=== PATIENT | male | born 1985 | race Caucasian/White ===

== ENCOUNTER 2024-07-28 03:16 | Inpatient (IN) | payer BC ==
[~2024-07-28] VITALS: Ht 182.9 cm; Wt 83.0 kg
[2024-07-28] MEDS: IBUPROFEN 600 MG TAB PO ONE ×2 (03:35→03:36)
--- NOTE | 2024-07-28 03:48 | ED.PDOC ---
HPI Comments 39 year old male presents to the ED with a chief complaint of intermittent chest pain onset 3 weeks. Patient states he has been experiencing intermittent chest pain for the past 3 weeks, as well as fever for the past 9 days. He had a telehealth appointment 2 days ago, prescribed Doxycycline was told to go to ED if there was no improvement in 48 hours. Patient states he is still experiencing fever over 102 every night, chills, sweats, shortness of breath. Temperature at 18:00 was 104.0 F, took Tylenol around 02:00 and upon ED arrival temperature was 101.8 F. Patient noticed dark urine for the past few days. Patient has a PMHx of HTN, HLD, preDM, PTSD. Denies nausea, vomiting, diarrhea, abdominal pain, headache, cough, congestion, dysuria, hematuria, sick contact. No other symptoms or modifying factors present at this time. Chief Complaint: Chest Pain Time Seen by MD: 03:34 Reviewed Notes: Medications, Allergies Allergies: Coded Allergies: Penicillins (Verified Allergy, Unknown, 07/28/24) Sulfa Antibiotics (Verified Allergy, Unknown, 07/28/24) Information Source: Patient Mode of Arrival: Ambulatory Severity: Moderate Timing: Days Duration: Since onset Prehospital treatment: Treatment (doxycycline), Other (tylenol) Location: Chest (L) Radiation: No Radiation Quality: Stabbing Onset: At Rest Cardiac Risk Factors: Hyperlipidemia PE Risk Factors: None History of: None Modifying Factors: Nothing Associated Signs and Symptoms: SOB, Other (fever) Past Medical History PAST MEDICAL HISTORY: High Lipids, HTN Past Medical History (Other): PTSD Surgical History: Denies all surgeries Family History Family History: Reviewed,noncontributory to illness, No family hx of Cancer, No family hx of DM, No family hx of Heart marlin, No family hx of HTN, No family hx ofKidney marlin, No family hx of Liver marlin, No family hx of Lung marlin, No family hx of Stroke Social History Smoker: Non-Smoker Alcohol: Denies ETOH Use Drugs: Denies Drug Use Lives In: Home Constitutional: reports: chills, fever, sweats; denies: diaphoresis, fatigue, malaise, weakness, others EENTM: denies: blurred vision, double vision, ear bleeding, ear discharge, ear drainage, ear pain, ear ringing, eye pain, eye redness, hearing loss, mouth pain, mouth swelling, nasal discharge, nose bleeding, nose congestion, nose pain, photophobia, tearing, throat pain, throat swelling, voice changes, others Respiratory: reports: shortness of breath; denies: cough, hemoptysis, orthopnea, SOB at rest, SOB with excertion, stridor, wheezing, others Cardiovascular: reports: chest pain; denies: dizzy spells, diaphoresis, Dyspnea on exertion, edema, irregular heart beat, left arm pain, lightheadedness, palpitations, PND, syncope, others Gastrointestinal: denies: abdomen distended, abdominal pain, blood streaked bowels, constipated, diarrhea, dysphagia, difficulty swallowing, hematemesis, melena, nausea, poor appetite, poor fluid intake, rectal bleeding, rectal pain, vomiting, others Genitourinary: reports: others (dark urine ); denies: burning, dysuria, flank pain, frequency, hematuria, incontinence, penile discharge, penile sore, pain, testicle pain, testicle swelling, urgency Neurological: denies: dizziness, fainting, headache, left sided numbness, left sided weakness, numbness, paresthesia, pre-existing deficit, right sided numbness, right sided weakness, seizure, speech problems, tingling, tremors, weakness, others Musculoskeletal: denies: back pain, gout, joint pain, joint swelling, muscle pain, muscle stiffness, neck pain, others Integumetry: denies: bruises, change in color, change in hair/nails, dryness, laceration, lesions, lumps, rash, wounds, others Allergic/Immunocompromised: denies: Difficulty Healing, Frequent Infections, Hives, Itching, others Hematologic/Lymphatic: denies: anemia, blood clots, easy bleeding, easy bruising, swollen glands, others Endocrine: denies: excessive hunger, excessive sweating, excessive thirst, excessive urination, flushing, intolerance to cold, intolerance to heat, unexplained weight gain, unexplained weight loss, others Psychiatric: denies: anxiety, bipolar disorder, depression, hopeless, panic disorder, schizophrenia, sleepless, suicidal, others All Other Systems: Reviewed and Negative Physical Exam General Appearance: No Apparent Distress HEENT: Normal ENT Inspection Neck: Full Range of Motion, Normal Inspection Respiratory: Chest Non-Tender, Lungs Clear, No Accessory Muscle Use, No Respiratory Distress, Normal Breath Sounds Cardiovascular: No Edema, No JVD, Tachycardia Breast Exam: Deferred Gastrointestinal: Non Tender, Soft Genitalia: Deferred Pelvic: Deferred Rectal: Deferred Extremities: Normal inspection, Normal range of motion, Non-tender, No pedal edema Neurologic: Alert (oriented x 4), Normal Affect, Normal Mood, Other (ambulatory without difficulty. no gross focal deficit.) Cerebellar Function: NOT DONE Reflexes: NOT DONE Skin: Dry, Normal Color, Warm Lymphatic: NOT DONE EKG EKG : Comments Sinus tach, rate 105, normal intervals, normal axis, normal QRS, nonspecific T changes. Was a procedure done? Was a procedure done?: No CP Differential Dx Differential Diagnosis: Angina, Anxiety / Panic Attack, Electrolyte Disorder, Heart Failure, Hyperventilation, DC, Pulmonary Embolus, Sinus Tachycardia Differential Diagnosis: CHF Differential Diagnosis: Chest Wall Pain, Pericarditis, Pneumonia Comment Viral syndrome, bronchitis, sepsis, among others X-Ray, Labs, Meds, VS Vital Signs Date Time Temp Pulse Resp B/P (MAP) Pulse Ox O2 Delivery O2 Flow Rate FiO2 07/28/24 04:58 104 22 100 Room Air* 0 21 07/28/24 04:41 98.7 103 12 107/63 (78) 100 98.7 07/28/24 04:35 98.2 07/28/24 03:35 101.8 07/28/24 03:29 105 07/28/24 03:21 101.8 108 18 107/72 (84) 97 Lab Test 07/28/24 04:08 07/28/24 03:41 07/28/24 03:30 Range/Units Lactic Acid Level 1.5 0.4-2.0 mmol/L Troponin I High Sensitivity 4 5 </=54 ng/L Urine Color Yellow Yellow Urine Clarity Clear Clear Urine pH 6.5 5.0-9.0 Urine Specific [place] 1.031 1.001-1.035 Urine Protein 1+ H Negative Urine Ketones Negative Negative Urine Blood Negative Negative /uL Urine Nitrite Negative Negative Urine Bilirubin Negative Negative Urine Urobilinogen 2 H Negative mg/dL Urine Leukocyte Esterase Negative Negative /uL Urine RBC 2 0 - 3 /hpf Urine Microscopic WBC 2 0-3 /HPF Urine Squamous Epithelial Cells None seen <5 /hpf Urine Bacteria None seen None Seen /hpf Urine Mucus Few None Seen Urine Glucose Normal Normal mg/dL Influenza Type A Antigen Negative Negative Influenza Type B Antigen Negative Negative SARS-CoV-2 Antigen (Rapid) Negative NEGATIVE White Blood Count 8.1 4.4-10.8 10^3/uL Red Blood Count 4.35 L 4.5-5.90 10^6/uL Hemoglobin 13.9 13.5-17.5 g/dL Hematocrit 39.9 L 41.0-53.0 % Mean Corpuscular Volume 91.8 80.0-100.0 fL Mean Corpuscular Hemoglobin 32.0 28.0-32.0 pg Mean Corpuscular Hemoglobin Concent 34.9 32.0-36.0 g/dL Red Cell Distribution Width 15.2 H 11.8-14.3 % Platelet Count 228 140-450 10^3/uL Mean Platelet Volume 7.3 6.9-10.8 fL Neutrophils (%) (Auto) 37.0-80.0 % Lymphocytes (%) (Auto) 10.0-50.0 % Monocytes (%) (Auto) 0.0-12.0 % Basophils (%) (Auto) 0.0-2.0 % Neutrophils # (Auto) 1.6-8.6 10 ^3/uL Lymphocytes # (Auto) 0.4-5.4 10 ^3/uL Monocytes # (Auto) 0-1.3 10 ^3/uL Differential Total Cells Counted 100.0 100 Neutrophils % (Manual) 36 L 37.0-80.0 Band Neutrophils % (Manual) 4 Lymphocytes % (Manual) 51 H 10.0-50.0 Monocytes % (Manual) 5 0-12 Eosinophils % (Manual) 0 0-7 Basophils % (Manual) 0 0.0-2.0 Metamyelocytes % (manual) 0 Myelocytes % (Manual) 0 Promyelocytes % (Manual) 0 Blast Cells % (Manual) 0 Reactive Lymphocytes 4 Platelet Estimate Adequate D-Dimer, Quantitative 1.62 H 0.0-0.49 mg/L FEU Sodium Level 135 L 136-145 mmol/L Potassium Level 3.5 3.5-5.1 mmol/L Chloride Level 105 98-107 mmol/L Carbon Dioxide Level 20 20-31 mmol/L Anion Gap 10 5-15 Blood Urea Nitrogen 10 9-23 mg/dL Creatinine 0.86 0.700-1.30 mg/dL Glomerular Filtration Rate Calc 114 >90 mL/min BUN/Creatinine Ratio 11.6 10.0-20.0 Serum Glucose 155 H 74-106 mg/dL Calcium Level 9.2 8.7-10.4 mg/dL B-Type Natriuretic Peptide 4.65 0-100 pg/mL Current Medications Medications (Trade) Dose Ordered Sig/Caroline Route Start Time Stop Time Status Last Admin Ibuprofen (Motrin Tablet) 600 mg ONCE ONCE PO 07/28/24 03:45 07/28/24 03:46 DC 07/28/24 03:35 Sodium Chloride 2,350 ml @ 2,350 mls/hr ONCE ONCE IV 07/28/24 03:45 07/28/24 04:44 DC 07/28/24 05:10 ORDERING PHYSICIAN: YURIY GONGORA MD PROCEDURE(s): CXRP - CHEST PORTABLE REASON: fever, cp ORDER NUMBER(s): [id number], ACCESSION NUMBER(s): [id number] CHEST RADIOGRAPH Indication: fever, cp Technique: Single frontal view of the chest was obtained COMPARISON: None FINDINGS: Lines and Tubes: None Lungs: Clear Pleura: No effusion. No pneumothorax. Cardiomediastinal contours: Unremarkable Bones: Unremarkable IMPRESSION: 1. Clear lungs. ATED BY: NELSON ORTEGA MD DICTATED DATE/TIME: 07/28/24357 SIGNED BY: NELSON ORTEGA MD SIGNED DATE/TIME: 07/28/24357 CC: X-Ray, Labs, Meds, VS Comment 39-year-old male with a history of hypertension, dyslipidemia, prediabetes and PTSD complaining of fever for the last 9 days, associated with chest pain Vitals remarkable for temperature of 101.8, heart rate 108 Exam remarkable for tachycardia Rhythm strip independently interpreted by me: Sinus tach, rate 105, no ectopy. Chest x-ray IMPRESSION: 1. Clear lungs. CT angio chest IMPRESSION: 1. No evidence of pulmonary embolism or acute intrathoracic process. 2. Circumferential wall thickening of the esophagus. Esophagitis is not excluded. 3. Hepatosplenomegaly. CBC unremarkable, basic metabolic panel remarkable for sodium 133, glc 155, BNP& serial troponins normal, UA unremarkable, lactate normal, D-dimer 1.62, influenza & Covid negative Patient treated with the following in the ED: 30 cc/kilogram IV fluid bolus, ibuprofen 600 mg p.o. On re-evaluation, patient is afebrile with stable vitals. Plan is to admit the patient for further evaluation of fever of unknown origin. Time of 1ST Reevaluation: 04:04 Reevaluation 1ST: Unchanged Reevaluation 2ND: Improved Patient Education/Counseling: Diagnosis, Treatment, Prognosis Family Education/Counseling: No Family Present Additional Information The following tests were ordered, and results were reviewed by me: EKG -3, TROP -3, CBC, XY CHEST, UA, BMP, LA W/ REFLEX, BLOOD CULTURE, RAPID INFLUENZA A&B, COVID, D-DIMER, BNP Additional Information was gathered from interviewing the following independent historians: I reviewed and agreed with the following test results read by other providers: XY CHEST I discussed treatment and results with medical personnel and: patient Departure 1 Departure Time of Disposition: 04:53 Impression: Primary Impression: Fever of unknown origin Additional Impression: Chest pain Qualified Codes: R07.9 - Chest pain, unspecified Disposition: ADMITTED INPATIENT Admit to: Med Surg Condition: Guarded Critical Care Note Critical Care Time?: No Stability Stability form required: No Heart Score Heart Score: Heart Score Response (Comments) Value History Highly Suspicious 2 EKG Repolarization Disturb 1 Age <45 0 Risk Factors No known risk factors 0 Troponin Normal limit 0 Total 3 I personally scribed for YURIY GONGORA MD ([email or web address]) on 07/28/24 at 03:48. Electronically submitted by Miriam England ([email or web address]). I personally scribed for YURIY GONGORA MD ([email or web address]) on 07/28/24 at 03:50. Electronically submitted by Miriam England ([email or web address]). I personally scribed for YURIY GONGORA MD ([email or web address]) on 07/28/24 at 04:07. Electronically submitted by Miriam England ([email or web address]). YURIY GONGORA MD Jul 28, 2024 03:48
[2024-07-28 03:59] LABS: Urine Bacteria None Seen /hpf (None Seen)
--- NOTE | 2024-07-28 04:01 | DVH ---
CHEST RADIOGRAPH Indication: fever, cp Technique: Single frontal view of the chest was obtained COMPARISON: None FINDINGS: Lines and Tubes: None Lungs: Clear Pleura: No effusion. No pneumothorax. Cardiomediastinal contours: Unremarkable Bones: Unremarkable IMPRESSION: 1. Clear lungs.
[2024-07-28 04:07] LABS: Chloride 105 mmol/L (98-107)
[2024-07-28 04:08] LABS: Anion Gap 10 (5-15); Calcium 9.2 mg/dL (8.7-10.4)
[2024-07-28 04:09] LABS: Urine Blood Negative /uL (Negative); Urine Clarity Clear (Clear); Urine Color Yellow (Yellow); Urine Mucus FEW (None Seen); Urine Protein, UAD 1+ (Negative); Urine Specific Gravity 1.031 (1.001-1.035); Urine Squamous Epithelial Cell None Seen /hpf (<5); Urine Urobilinogen 2 mg/dL (Negative); Urine WBC 2 /HPF (0-3); Urine pH 6.5 (5.0-9.0)
[2024-07-28 04:11] LABS: Hematocrit 39.9 % (41.0-53.0); Hemoglobin 13.9 g/dL (13.5-17.5); Mean Corpuscular Hgb Conc. 34.9 g/dL (32.0-36.0); Mean Corpuscular Volume 91.8 fL (80.0-100.0); Platelet Count (auto) 228 10^3/uL (140-450); Red Blood Cells 4.35 10^6/uL (4.5-5.90); Red Cell Distribution Width 15.2 % (11.8-14.3); White Blood Cell 8.1 10^3/uL (4.4-10.8)
[2024-07-28 04:12] LABS: Carbon Dioxide 20 mmol/L (20-31); Potassium 3.5 mmol/L (3.5-5.1); Sodium 135 mmol/L (136-145)
[2024-07-28 04:13] LABS: BUN/Creatinine Ratio 11.6 (10.0-20.0); Blood Urea Nitrogen 10 mg/dL (9-23)
[2024-07-28 04:14] LABS: Glucose 155 mg/dL (74-106)
[2024-07-28 04:17] LABS: Basophils % (manual) 0 (0.0-2.0); Blast Cells 0; Eosinophils % (manual) 0 (0-7); Metamyelocytes % 0; Myelocytes % 0; Promyelocytes % 0
[2024-07-28 04:21] LABS: COVID19 ANTIGEN SOFIA FIA NEGATIVE (NEGATIVE); Rapid Influenza A Negative (Negative); Rapid Influenza B Negative (Negative)
[2024-07-28 04:37] LABS: Band Neutrophils % (manual) 4; Lymphocytes % (manual) 51 (10.0-50.0); Monocytes % (manual) 5 (0-12); Reactive Lymphocytes 4
[2024-07-28 04:44] LABS: Platelet Estimate Adequate
[2024-07-28 04:58] VITALS: PULSE 104; RESP 22; O2SAT 100
[2024-07-28] MEDS: IOHEXOL 350 MG/ML 100ML IJ ONE (05:09)
[2024-07-28] MEDS: SODIUM CHLORIDE 0.9% 2,350 ML IV ONE (05:10)
--- NOTE | 2024-07-28 05:46 | DVH ---
CTA Chest with intravenous contrast INDICATION: fever cp sob hi dimer r/o pe COMPARISON: Chest radiograph performed same date TECHNIQUE: Multidetector spiral CTA of the chest was performed of the chest with 100 cc of omnipaque 350 intravenous contrast. PULMONARY ANGIOGRAPHY PROTOCOL was utilized using a bolus-tracking techniqu e centered on the main pulmonary artery. Coronal and sagittal multiplanar and MIP reformats were per formed. Radiation Dose : 1. Chest: CTDI volume is 15.4 mGy. Dose-length product is 607.5 mGy*cm The dose indicators for CT are the volume Computed Tomography (CT) Dose Index (CTDIvol) and the Dose Length Product (DLP), and are measured in units of mGy and mGy-cm, respectively. These indicators are not patient dose, but values generated from the CT scanner acquisition factors. The report includes radiation exposure data for exposures received during this examination. FINDINGS: Pulmonary artery: No pulmonary embolus. Lower neck: Normal thyroid. Lungs: No evidence of focal pulmonary consolidation. No suspicious mass or nodule. Central airways: Patent. Pleura: No pneumothorax. No pleural effusion. Esophagus: Mild circumferential wall thickening. Hiatal hernia. Heart/Vascular Structures: The heart is normal in size. No pericardial effusion. Thoracic aorta is normal in caliber. No aneurysm or dissection. Lymph Nodes: No mediastinal or hilar lymphadenopathy. Esophagus:Grossly unremarkable. Musculoskeletal: Unremarkable. Body wall: Unremarkable. Upper abdomen: Hepatosplenomegaly. IMPRESSION: 1. No evidence of pulmonary embolism or acute intrathoracic process. 2. Circumferential wall thickening of the esophagus. Esophagitis is not excluded. 3. Hepatosplenomegaly.
[2024-07-28 07:27] VITALS: PULSE 81; RESP 16; O2SAT 100
[2024-07-28] MEDS ORDERED: DOCUSATE SOD 100 MG CAP PO PRN (07:30)
[2024-07-28] MEDS ORDERED: ONDANSETRON HCL 4 MG/2 ML VIAL IV PRN (07:30)
[2024-07-28] MEDS ORDERED: MORPHINE SULFATE INJ 2 MG/ml SYRG IV PRN (07:30)
[2024-07-28] MEDS ORDERED: NITROGLYCERIN 0.4 MG SL TAB SL PRN (07:30)
[2024-07-28] MEDS ORDERED: PANT40T PO (07:35)
[2024-07-28] MEDS ORDERED: CLON-853 PO (07:35)
[2024-07-28] MEDS ORDERED: ATOR10TA52 PO (07:35)
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
[2024-07-28] MEDS ORDERED: QUET1TAB11 PO (08:54)
[2024-07-28 09:28] LABS: Albumin 4.1 g/dL (3.2-4.8); Total Protein 6.7 g/dL (5.7-8.2)
[2024-07-28 09:29] LABS: Magnesium 1.9 mg/dL (1.6-2.6)
[2024-07-28] MEDS ORDERED: VANCOMYCIN 1.5GM/250ML 250 ML IV ONE (09:45)
[2024-07-28] MEDS ORDERED: VANCOMYCIN PER PHARMACY 0 MG IV SCH (09:45)
[2024-07-28 10:47] VITALS: BP 109/65; PULSE 86; RESP 20; TEMP 97.7; O2SAT 98
[2024-07-28] MEDS: PANTOPRAZOLE 40 MG TAB PO SCH (11:19)
[2024-07-28] MEDS: ASPirin 81 mg TAB PO SCH (11:19)
[2024-07-28] MEDS: VANCOMYCIN 1.5GM/250ML 250 ML IV ONE (11:22)
--- NOTE | 2024-07-28 11:32 | DVHINCON2 ---
DENNIS ZARATE [facility] 07/28/24 1132: Date Seen: Jul 28, 2024 Referring Physician MONA Mina Reason for Consultation Chest pain History of Present Illness This is a 39-year-old male patient who presents to emergency room with chief complaint of chest pain for four weeks. The patient reports he was recently seen at [facility] and was told to come back in two weeks for a twelve lead electrocardiogram. He reports that the last nine nights he has been experiencing fevers at home and has been taking [id number] Tylenol. He comes to the emergency room for further evaluation. Upon emergency room arrival, patient noted to have a temperature of 101.8F. Cardiology has now been consulted for chest pain. The patient describes it as unprovoked, intermittent, "pinching" in nature, and left-sided without radiation. He denies any associated symptoms. Initial twelve lead electrocardiogram reveals sinus tachycardia with nonspecific ST segment changes to inferior leads. Initial troponin level has been negative. Significant past medical history includes lipidemia, GERD, prediabetes, sleep apnea with CPAP use, chronic back pain, insomnia, and posttraumatic stress disorder. Past Medical History Past medical history reviewed. No other significant than mentioned above. Past Surgical History Right rotator cuff repair Family History Family history reviewed. Social History Patient admits to previous alcohol abuse, states he has had any alcohol for approximately two years Denies any illicit drug use Denies any tobacco use Allergies: Coded Allergies: Penicillins (Verified Allergy, Unknown, 07/28/24) Sulfa Antibiotics (Verified Allergy, Unknown, 07/28/24) Home Meds Reported Medications Escitalopram Oxalate (Lexapro) 20 Mg Tab, 1 TAB PO DAILY, #90 TAB 3 Refills 07/28/24 Quetiapine Fumerate (QUETIAPINE FUMARATE) 25 Mg Tab, 12.5 MG PO HS 07/28/24 Atorvastatin Calcium (ATORVASTATIN CALCIUM) 10 Mg Tab, 1 TAB PO HS, #30 TAB 5 Refills 07/28/24 Pantoprazole Sodium Sesquihydr (Pantoprazole Sodium) 40 Mg Tab, 1 TAB PO DAILY 07/28/24 Clonazepam (Clonazepam) 1 Mg Tab, 1 TAB PO HS 07/28/24 Home Meds Home medications reviewed. Current Medications Current Medications Medications (Trade) Dose Ordered Sig/Caroline Route PRN Reason Start Time Stop Time Status Last Admin Sodium Chloride (Saline Lock Ns) 10 ml Q8HR IV 07/28/24 14:00 Acetaminophen/ Hydrocodone Bitart ([place] 5/325MG Tab) 1 tab Q4HP PRN PO MODERATE PAIN (4-6 PAIN SCALE) 07/28/24 07:30 Ondansetron HCl (Zofran) 4 mg Q4HP PRN IV NAUSEA / VOMITING 07/28/24 07:30 Docusate Sodium (Colace Capsule) 100 mg BIDPRN PRN PO FOR CONSTIPATION 07/28/24 07:30 Acetaminophen (Tylenol Tablet) 650 mg Q6HP PRN PO PAIN SCALE 1-3 OR TEMP>100.4 07/28/24 07:30 Nitroglycerin (Ntrostat Sublingual) 0.4 mg Q5MINP PRN SL FOR CHEST PAIN 07/28/24 07:30 Morphine Sulfate 2 mg Q30M PRN IV FOR CHEST PAIN 07/28/24 07:30 Pantoprazole Sodium (Protonix Tablet) 40 mg DAILY PO 07/28/24 10:00 07/28/24 11:19 Atorvastatin Calcium (Lipitor) 10 mg HS PO 07/28/24 22:00 Clonazepam (KlonoPIN TABLET) 1 mg HS PO 07/28/24 22:00 Aspirin 81 mg DAILY PO 07/28/24 10:00 07/28/24 11:19 Quetiapine Fumarate (SEROquel TABLET) 12.5 mg HS PO 07/28/24 22:00 UNV Vancomycin HCl 0 ml @ 0 mls/hr UD IV 07/28/24 09:45 Review of Systems Constitutional: Febrile Ears, Nose, & Throat: No symptom reported Eyes: No symptom reported Neurological: No symptoms reported Pulmonary/Respiratory: No symptoms reported Cardiovascular: Chest pain Gastrointestinal: No symptom reported Genitourinary: No symptom reported Musculoskeletal: No symptom reported Skin: No symptom reported Psychiatric: No symptom reported Endocrine: No symptom reported Hematologic/Lymphatic: No symptom reported Vital Signs Vital Signs Date Time Temp Pulse Resp B/P (MAP) Pulse Ox O2 Delivery O2 Flow Rate FiO2 07/28/24 09:37 97.6 88 20 114/67 (83) 100 97.6 07/28/24 07:27 Room Air* 0 21 Physical Exam General Appearance: Cooperative. Well-developed. Well-nourished. No acute dis tress. Pulmonary/Respiratory: Clear, bilateral breaths sounds. Cardiovascular/Chest: Regular rate and rhythm. Peripheral Pulses: 2+ Radial (R). 2+ Radial (L). 2+ Pedal (R). 2+ Pedal (L) Abdominal Exam: Normal bowel sounds. Ankle Exam: Negative ankle edema Lower extremities: Negative lower extremity edema Neuro/Mental Status: A/OX4, coherent. Thoughts/Psych: Normal thought pattern. Appropriate mood and affect. Good judgment and insight. Appearance: No acute distress. Skin Exam: Normal inspection. Normal color. Warm and dry. Labs/Diagnostic Data Labs Test 07/28/24 04:08 07/28/24 03:41 07/28/24 03:30 Range/Units Lactic Acid Level 1.5 0.4-2.0 mmol/L Troponin I High Sensitivity 4 </=54 ng/L Urine Color Yellow Yellow Urine Clarity Clear Clear Urine pH 6.5 5.0-9.0 Urine Specific [place] 1.031 1.001-1.035 Urine Protein 1+ H Negative Urine Ketones Negative Negative Urine Blood Negative Negative /uL Urine Nitrite Negative Negative Urine Bilirubin Negative Negative Urine Urobilinogen 2 H Negative mg/dL Urine Leukocyte Esterase Negative Negative /uL Urine RBC 2 0 - 3 /hpf Urine Microscopic WBC 2 0-3 /HPF Urine Squamous Epithelial Cells None seen <5 /hpf Urine Bacteria None seen None Seen /hpf Urine Mucus Few None Seen Urine Glucose Normal Normal mg/dL Influenza Type A Antigen Negative Negative Influenza Type B Antigen Negative Negative SARS-CoV-2 Antigen (Rapid) Negative NEGATIVE White Blood Count 8.1 4.4-10.8 10^3/uL Red Blood Count 4.35 L 4.5-5.90 10^6/uL Hemoglobin 13.9 13.5-17.5 g/dL Hematocrit 39.9 L 41.0-53.0 % Mean Corpuscular Volume 91.8 80.0-100.0 fL Mean Corpuscular Hemoglobin 32.0 28.0-32.0 pg Mean Corpuscular Hemoglobin Concent 34.9 32.0-36.0 g/dL Red Cell Distribution Width 15.2 H 11.8-14.3 % Platelet Count 228 140-450 10^3/uL Mean Platelet Volume 7.3 6.9-10.8 fL Neutrophils (%) (Auto) 37.0-80.0 % Lymphocytes (%) (Auto) 10.0-50.0 % Monocytes (%) (Auto) 0.0-12.0 % Basophils (%) (Auto) 0.0-2.0 % Neutrophils # (Auto) 1.6-8.6 10 ^3/uL Lymphocytes # (Auto) 0.4-5.4 10 ^3/uL Monocytes # (Auto) 0-1.3 10 ^3/uL Differential Total Cells Counted 100.0 100 Neutrophils % (Manual) 36 L 37.0-80.0 Band Neutrophils % (Manual) 4 Lymphocytes % (Manual) 51 H 10.0-50.0 Monocytes % (Manual) 5 0-12 Eosinophils % (Manual) 0 0-7 Basophils % (Manual) 0 0.0-2.0 Metamyelocytes % (manual) 0 Myelocytes % (Manual) 0 Promyelocytes % (Manual) 0 Blast Cells % (Manual) 0 Reactive Lymphocytes 4 Platelet Estimate Adequate D-Dimer, Quantitative 1.62 H 0.0-0.49 mg/L FEU Sodium Level 135 L 136-145 mmol/L Potassium Level 3.5 3.5-5.1 mmol/L Chloride Level 105 98-107 mmol/L Carbon Dioxide Level 20 20-31 mmol/L Anion Gap 10 5-15 Blood Urea Nitrogen 10 9-23 mg/dL Creatinine 0.86 0.700-1.30 mg/dL Glomerular Filtration Rate Calc 114 >90 mL/min BUN/Creatinine Ratio 11.6 10.0-20.0 Serum Glucose 155 H 74-106 mg/dL Hemoglobin A1c 4.8 <5.7 % A1C Calcium Level 9.2 8.7-10.4 mg/dL Magnesium Level 1.9 1.6-2.6 mg/dL Total Bilirubin 1.0 0.2-1.0 mg/dL Aspartate Amino Transferase (AST) 135 H 13-40 U/L Alanine Aminotransferase (ALT) 205 H 7-40 U/L Alkaline Phosphatase 128 H 46-116 U/L B-Type Natriuretic Peptide 4.65 0-100 pg/mL Total Protein 6.7 5.7-8.2 g/dL Albumin 4.1 3.2-4.8 g/dL Assessment Chest pain, likely noncardiac Dyslipidemia Pyrexia of unknown origin Sleep apnea with CPAP use PTSD History of alcohol abuse Plan/Recommendation We will continue with the following plan/recommendations (Dr. May): Patient seen and examined at bedside with . Transthoracic echocar diogram reveals EF 70% with no severe valve abnormalities noted. Given patient's clinical presentation, negative troponin level, and twelve lead electrocardiogram, doubt ACS. There is no further inpatient cardiac workup indicated at this time. The patient may follow up with Cardiology in the outpatient setting for further workup if deemed necessary. Please consider Infectious Disease consult given the patient's pyrexia of unknown source. Thank you for allowing us to care for this patient. Please call with any questions or concerns. Critical care time spent: 44 minutes This medical document was created using an electronic medical record system with voice recognition software and computerized dictation system. Although this document has been carefully reviewed, there might still be some phonetic and typographical errors. Occasional wrong-word or ``sound-alike substitutions may have occurred due to the inherent limitations of voice recognition software. These areas are purely typographical due to imperfections of the software programs and do not reflect any compromise in the patient's medical care. Please read the chart carefully and recognize, using context, where these substitutions have occurred. Plan discussed with: Patient NYHA Physical activity limitations: NA Date of Service: Jul 28, 2024 Billing Provider: DENNIS ZARATE Cardiology Common Codes: [id number] INP/OBS CARE (High) Cardiology Consultation Codes: [id number] CONSULT <45MIN MOISES MAY MD 07/28/24 1903: Allergies: Coded Allergies: Penicillins (Verified Allergy, Unknown, 07/28/24) Sulfa Antibiotics (Verified Allergy, Unknown, 07/28/24) Home Meds Reported Medications Escitalopram Oxalate (Lexapro) 20 Mg Tab, 1 TAB PO DAILY, #90 TAB 3 Refills 07/28/24 Quetiapine Fumerate (QUETIAPINE FUMARATE) 25 Mg Tab, 12.5 MG PO HS 07/28/24 Atorvastatin Calcium (ATORVASTATIN CALCIUM) 10 Mg Tab, 1 TAB PO HS, #30 TAB 5 Refills 07/28/24 Pantoprazole Sodium Sesquihydr (Pantoprazole Sodium) 40 Mg Tab, 1 TAB PO DAILY 07/28/24 Clonazepam (Clonazepam) 1 Mg Tab, 1 TAB PO HS 07/28/24 Plan/Recommendation recurrent fever workup needs to be completed by primary team, blood cx, ID eval, echo is unremarkable acs ruled out signing off pt seen and examined with ENGINEERING 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
[2024-07-28] MEDS ORDERED: ESCI20TA PO (11:53)
[2024-07-28 13:00] VITALS: BP 104/62; PULSE 85; RESP 14; TEMP 98.2; O2SAT 96
[2024-07-28] MEDS: HYDROcodone-ACET 5/325MG TAB PO PRN (13:11)
[2024-07-28 13:23] LABS: Benzodiazephine Screen, Urine Neg (NEGATIVE)
[2024-07-28 13:33] LABS: Opiate Scree,Urine Neg (NEGATIVE)
[2024-07-28 13:34] LABS: Amphetamine Screen, Urine Neg (NEGATIVE); Barbiturate Scree,Urine Neg (NEGATIVE); Cannabinoid Screen, Urine Neg (NEGATIVE); Cocaine Screen, Urine Neg (NEGATIVE); Phencyclidine Screen, Urine Neg (NEGATIVE)
[2024-07-28 13:43] LABS: Cholesterol 122 mg/dL (< 200)
[2024-07-28 13:48] LABS: Bilirubin, Direct 0.3 mg/dL (<0.3); HDL Cholesterol 19 mg/dL (40-59); Triglycerides 452 mg/dL (< 150)
[2024-07-28] MEDS: SODIUM CHLOR 0.9% PF (SALINE LOCK) 10ML VIAL/SYR IV SCH (14:00)
--- NOTE | 2024-07-28 15:06 | DVHPN2 ---
Reviewed: Care Plan, H&P, Labs, Medications, Previous Orders, Radiology Changes from previous H/P or p: No Changes Eyes: No Pain, No Vision change, No Conjunctivae inflammation, No Eyelid inflammation, No Other, No Redness ENT: No Ear pain, No Ear discharge, No Nose pain, No Nose discharge, No Nose congestion, No Mouth pain, No Mouth swelling, No Throat pain, No Throat swelling, No Other Cardiovascular: Chest Pain; No Palpitations, No Orthopnea, No Paroxysmal Noc. Dyspnea, No Edema, No Lt Headedness, No Other Respiratory: No Cough, No Dry, No Shortness of breath; SOB with excertion; No Wheezing, No Hemoptysis, No Pleuritic Pain, No Sputum, No Other Gastrointestinal: No Nausea, No Vomiting, No Abdominal Pain, No Diarrhea, No Constipation, No Melena, No Hematochezia, No Other Genitourinary: No Dysuria, No Frequency, No Incontinence, No Hematuria, No Retention, No Other Musculoskeletal: No other, No neck pain, No shoulder pain, No arm pain, No back pain, No hand pain, No leg pain, No foot pain Skin: No Rash, No Lesions, No Jaundice, No Bruising, No Other Objective Vitals Vital Signs Date Time Temp Pulse Resp B/P (MAP) Pulse Ox O2 Delivery O2 Flow Rate FiO2 07/28/24 13:55 Room Air* 0 21 07/28/24 13:00 98.2 85 14 104/62 (34) 96 98.2 Intake/Output Intake and Output 07/28/24 07:00 Intake Total 2350 ml Balance 2350 ml Intake IV Total 2350 ml Medications Current Medications Medications Dose Ordered Sig/Caroline Route Start Time Stop Time Status Last Admin Dose Admin Sodium Chloride 10 ml Q8HR IV 07/28/24 14:00 Acetaminophen/ Hydrocodone Bitart 1 tab Q4HP PRN PO 07/28/24 07:30 07/28/24 13:11 1 TAB Ondansetron HCl 4 mg Q4HP PRN IV 07/28/24 07:30 Docusate Sodium 100 mg BIDPRN PRN PO 07/28/24 07:30 Acetaminophen 650 mg Q6HP PRN PO 07/28/24 07:30 Nitroglycerin 0.4 mg Q5MINP PRN SL 07/28/24 07:30 Morphine Sulfate 2 mg Q30M PRN IV 07/28/24 07:30 Pantoprazole Sodium 40 mg DAILY PO 07/28/24 10:00 07/28/24 11:19 40 MG Atorvastatin Calcium 10 mg HS PO 07/28/24 22:00 Clonazepam 1 mg HS PO 07/28/24 22:00 Aspirin 81 mg DAILY PO 07/28/24 10:00 07/28/24 11:19 81 MG Vancomycin HCl 0 ml @ 0 mls/hr UD IV 07/28/24 09:45 Quetiapine Fumarate 25 mg HS PO 07/28/24 22:00 Vancomycin HCl 250 ml @ 200 mls/hr Q8H IV 07/28/24 20:00 Laboratory Results Laboratory Tests 07/28/24 03:30 Chemistry Test 07/28/24 03:30 Albumin 4.1 g/dL (3.2-4.8) Calcium Level 9.2 mg/dL (8.7-10.4) Magnesium Level 1.9 mg/dL (1.6-2.6) Total Protein 6.7 g/dL (5.7-8.2) Coagulation Test 07/28/24 03:30 D-Dimer, Quantitative 1.62 mg/L FEU (0.0-0.49) H Lipid panel Test 07/28/24 03:30 Cholesterol Level 122 mg/dL (< 200) HDL Cholesterol 19 mg/dL (40-59) L Triglycerides Level 452 mg/dL (< 150) H Cardiac Markers Test 07/28/24 03:30 B-Type Natriuretic Peptide 4.65 pg/mL (0-100) LFT Test 07/28/24 03:30 Alanine Aminotransferase (ALT) 205 U/L (7-40) H Alkaline Phosphatase 128 U/L (46-116) H Aspartate Amino Transferase (AST) 135 U/L (13-40) H Direct Bilirubin 0.3 mg/dL (<0.3) Total Bilirubin 1.0 mg/dL (0.2-1.0) HgA1c, TSH Test 07/28/24 03:30 Hemoglobin A1c 4.8 % A1C (<5.7) Thyroid Stimulating Hormone (TSH) 1.37 uIU/mL (0.55-4.78) Urinalysis Test 07/28/24 03:41 Urine Color Yellow (Yellow) Urine Clarity Clear (Clear) Urine pH 6.5 (5.0-9.0) Urine Specific [place] 1.031 (1.001-1.035) Urine Protein 1+ (Negative) H Urine Ketones Negative (Negative) Urine Blood Negative /uL (Negative) Urine Nitrite Negative (Negative) Urine Bilirubin Negative (Negative) Urine Urobilinogen 2 mg/dL (Negative) H Urine Leukocyte Esterase Negative /uL (Negative) Urine RBC 2 /hpf (0 - 3) Urine Microscopic WBC 2 /HPF (0-3) Urine Squamous Epithelial Cells None seen /hpf (<5) Urine Bacteria None seen /hpf (None Seen) Urine Mucus Few (None Seen) Urine Glucose Normal mg/dL (Normal) Labs and/or images reviewed: Labs reviewed by me, Image(s) reviewed by me Assessment/Plan Assessment/Plan Acute chest pain rule out coronary artery disease, cardiology consult appreciated Hypercholesterolemia Fever secondary to possible aspiration pneumonia: Doxycycline History of sleep apnea on CPAP PTSD : Continue home medications Seroquel and Klonopin History of alcohol abuse Elevated liver enzymes possibly secondary to alcohol abuse: Counseling PE ruled out Chest x-ray negative Gunjan test negative Rapid flu test negative Urine drug screen negative Possible esophagitis by CT chest: Consult for GI Dr. Roman Time spent 45 minutes Patient is full code Advanced care planning time 20 minutes Plan discussed with: Patient My Orders Orders - ESTEBAN BOONE MD Procedure Category Date Status Time Doxycycline PHA 07/28/24 Verified 100mg/100ml 15:15 Date of Service: Jul 28, 2024 Billing Provider: ESTEBAN BOONE MD Common Visit Codes: [id number] INP/OBS CARE(HIGH) Secondary Visit Codes: [id number] CARE PLAN 30 MINUTES ESTEBAN BOONE MD Jul 28, 2024 15:06
--- NOTE | 2024-07-28 15:32 | DVHSR ---
APPROVED REPORT EXAM: Two-dimensional and M-mode echocardiogram with Doppler and color Doppler. Blood Pressure: 102/63 mmHg INDICATION LV function, R/O endocarditis RISK FACTORS Height: 70, Weight: 188 DIMENSIONS LVDd5.2 (3.8-5.7cm)LA (2D)4.1 (1.9-4.0cm)Aortic Root3.6 (2.0-3.7cm) LVDs3.1 (2.5-4.0cm)LA (MM) (1.9-4.0cm)Aortic Cusp Exc1.5 (1.5-2.0cm) EF (%) 70.0 (55-70%)Rt. Atrium3.7 (1.9-4.0cm)Asc. Aorta cm Mitral Valve MitralMitral Stenosis E wave0.74m/sMV Mean GR.mmHg A wave0.55m/sMV Peak GR.mmHg E/A ratio1.32D MVAcm2 DECEL [id number] 1/2 [id number] IVRTmsDop MVA3.91cm2 Aortic Valve Aortic ValveAortic Stenosis V11.43m/Ariel Mean GR.4mmHg V21.44m/Ariel Peak GR.8mmHg LVOT Diameter2.2 (1.8-2.4cm)Doppler AVA3.77cm2 Pulmonic Valve V21.16m/s Conclusion lvef 70% by visual estimate normal rv function no vegetation noted no severe valve abnormalities noted
[2024-07-28 15:57] LABS: Erythrocyte Sedimentation Rate 16 mm/hr (0-20)
[2024-07-28 17:00] VITALS: BP 97/61; PULSE 81; RESP 26; TEMP 98.9; O2SAT 99
--- NOTE | 2024-07-28 18:01 | ECG ---
[facility] Test Date: 2024-07-28 Test Time: 03:29:53 Pat Name: AASHISH SCHWARTZ Department: ED Room: 0238T Gender: M It Help Desk Associate: JOSE ANGEL : 1985 Requested By: YURIY GILBERT Order Number: [id number] Reading MD: Norbert Kowalski Measurements Intervals [place] Rate: 105 P: 81 KS: 124 QRS: 82 QRSD: 82 T: -30 QT: 314 QTc: 416 Interpretive Statements Sinus tachycardia Borderline repolarization abnormality Baseline wander in lead(s) III,aVF Electronically Signed On 07-29-2024 11:59:40 PST by Norbert Kowalski Please click the below link to view image of tracing.
[2024-07-28] MEDS: DOXYCYCLINE 100MG/100ML 100 ML IV SCH (18:12)
[2024-07-28] MEDS ORDERED: VANCOMYCIN 1.25GM/250ML 250 ML IV SCH (20:00)
[2024-07-28] MEDS: ATORVASTATIN 20 MG TAB PO SCH (21:59)
[2024-07-28] MEDS: QUEtiapine FUMARATE 25 MG TAB PO SCH (21:59)
[2024-07-28] MEDS ORDERED: QUEtiapine FUMARATE 25 MG TAB PO SCH (22:00)
[2024-07-28] MEDS: clonazePAM 0.5 MG TAB PO SCH (22:25)
[2024-07-29] VITALS (9 sets, daily range): BP systolic 90–110; BP diastolic 50–67; PULSE 74–116; RESP 18–20; TEMP 97.9–100.8; O2SAT 96–100
[2024-07-29 05:16] LABS: Hematocrit 36.3 % (41.0-53.0); Hemoglobin 12.8 g/dL (13.5-17.5); Mean Corpuscular Hemoglobin 32.9 pg (28.0-32.0); Mean Corpuscular Hgb Conc. 35.4 g/dL (32.0-36.0); Platelet Count (auto) 228 10^3/uL (140-450); Red Cell Distribution Width 15.6 % (11.8-14.3); White Blood Cell 5.3 10^3/uL (4.4-10.8)
[2024-07-29 05:27] LABS: Basophils % (manual) 0 (0.0-2.0); Blast Cells 0; Metamyelocytes % 0; Myelocytes % 0; Promyelocytes % 0
[2024-07-29 05:32] LABS: Albumin 3.6 g/dL (3.2-4.8); Alkaline Phosphatase 115 U/L (46-116); Anion Gap 8 (5-15); BUN/Creatinine Ratio 11.5 (10.0-20.0); Bilirubin, Total 0.7 mg/dL (0.2-1.0); Blood Urea Nitrogen 10 mg/dL (9-23); Calcium 9.1 mg/dL (8.7-10.4); Carbon Dioxide 24 mmol/L (20-31); Chloride 107 mmol/L (98-107); Potassium 3.8 mmol/L (3.5-5.1); Sodium 139 mmol/L (136-145); Total Protein 5.7 g/dL (5.7-8.2)
[2024-07-29 05:36] LABS: Alanine Aminotransferase 195 U/L (7-40); Glucose 121 mg/dL (74-106)
[2024-07-29 06:24] LABS: Aspartate Aminotransferase 115 U/L (13-40)
[2024-07-29 06:28] LABS: Band Neutrophils % (manual) 4; Eosinophils % (manual) 5 (0-7); Lymphocytes % (manual) 57 (10.0-50.0); Monocytes % (manual) 4 (0-12); Reactive Lymphocytes 2
[2024-07-29 06:29] LABS: Platelet Estimate Adequate
[2024-07-29] MEDS: ACETAMINOPHEN 325 MG TAB PO PRN (08:21)
[2024-07-29] MEDS: PANTOPRAZOLE 40 MG TAB PO SCH (09:55)
[2024-07-29] MEDS: THROAT LOZENGES(CEPASTAT) MT PRN (10:00)
--- NOTE | 2024-07-29 10:26 | DVHPN2 ---
Reviewed: Care Plan, H&P, Labs, Medications, Previous Orders, Radiology Changes from previous H/P or p: No Changes Eyes: No Pain, No Vision change, No Conjunctivae inflammation, No Eyelid inflammation, No Other, No Redness ENT: No Ear pain, No Ear discharge, No Nose pain, No Nose discharge, No Nose congestion, No Mouth pain, No Mouth swelling, No Throat pain, No Throat swelling, No Other Cardiovascular: Chest Pain; No Palpitations, No Orthopnea, No Paroxysmal Noc. Dyspnea, No Edema, No Lt Headedness, No Other Respiratory: No Cough, No Dry, No Shortness of breath; SOB with excertion; No Wheezing, No Hemoptysis, No Pleuritic Pain, No Sputum, No Other Gastrointestinal: No Nausea, No Vomiting, No Abdominal Pain, No Diarrhea, No Constipation, No Melena, No Hematochezia, No Other Genitourinary: No Dysuria, No Frequency, No Incontinence, No Hematuria, No Retention, No Other Musculoskeletal: No other, No neck pain, No shoulder pain, No arm pain, No back pain, No hand pain, No leg pain, No foot pain Skin: No Rash, No Lesions, No Jaundice, No Bruising, No Other Objective Vitals Vital Signs Date Time Temp Pulse Resp B/P (MAP) Pulse Ox O2 Delivery O2 Flow Rate FiO2 07/29/24 09:25 99.4 07/29/24 09:00 102 19 95/56 (69) 97 07/28/24 20:00 Room Air* 0 21 Intake/Output Intake and Output 07/29/24 07:00 Intake Total 725 ml Output Total 9 ml Balance 716 ml Intake Oral 725 ml Output Urine Total 9 ml Medications Current Medications Medications Dose Ordered Sig/Caroline Route Start Time Stop Time Status Last Admin Dose Admin Sodium Chloride 10 ml Q8HR IV 07/28/24 14:00 07/29/24 05:08 10 ML Acetaminophen/ Hydrocodone Bitart 1 tab Q4HP PRN PO 07/28/24 07:30 07/28/24 22:26 1 TAB Ondansetron HCl 4 mg Q4HP PRN IV 07/28/24 07:30 Docusate Sodium 100 mg BIDPRN PRN PO 07/28/24 07:30 Acetaminophen 650 mg Q6HP PRN PO 07/28/24 07:30 07/29/24 08:21 650 MG Nitroglycerin 0.4 mg Q5MINP PRN SL 07/28/24 07:30 Morphine Sulfate 2 mg Q30M PRN IV 07/28/24 07:30 Atorvastatin Calcium 10 mg HS PO 07/28/24 22:00 07/28/24 21:59 10 MG Clonazepam 1 mg HS PO 07/28/24 22:00 07/28/24 22:25 0.5 MG Aspirin 81 mg DAILY PO 07/28/24 10:00 07/29/24 09:24 81 MG Quetiapine Fumarate 25 mg HS PO 07/28/24 22:00 07/28/24 21:59 25 MG Doxycycline Hyclate 100 ml @ 50 mls/hr Q12H IV 07/28/24 15:15 07/29/24 02:17 50 MLS/HR Throat Lozenges 1 bar Q2HP PRN MT 07/29/24 09:30 07/29/24 10:00 1 BAR Pantoprazole Sodium 40 mg BID PO 07/29/24 10:00 Sucralfate 1 gm QID@0600,1130,1700,2200 PO 07/29/24 11:30 Laboratory Results Laboratory Tests 07/29/24 04:50 Chemistry Test 07/29/24 04:50 Albumin 3.6 g/dL (3.2-4.8) Calcium Level 9.1 mg/dL (8.7-10.4) Total Protein 5.7 g/dL (5.7-8.2) LFT Test 07/29/24 04:50 Alanine Aminotransferase (ALT) 195 U/L (7-40) H Alkaline Phosphatase 115 U/L (46-116) Aspartate Amino Transferase (AST) 115 U/L (13-40) H Total Bilirubin 0.7 mg/dL (0.2-1.0) Urinalysis Test 07/28/24 03:41 Urine Color Yellow (Yellow) Urine Clarity Clear (Clear) Urine pH 6.5 (5.0-9.0) Urine Specific [place] 1.031 (1.001-1.035) Urine Protein 1+ (Negative) H Urine Ketones Negative (Negative) Urine Blood Negative /uL (Negative) Urine Nitrite Negative (Negative) Urine Bilirubin Negative (Negative) Urine Urobilinogen 2 mg/dL (Negative) H Urine Leukocyte Esterase Negative /uL (Negative) Urine RBC 2 /hpf (0 - 3) Urine Microscopic WBC 2 /HPF (0-3) Urine Squamous Epithelial Cells None seen /hpf (<5) Urine Bacteria None seen /hpf (None Seen) Urine Mucus Few (None Seen) Urine Glucose Normal mg/dL (Normal) Microbiology Microbiology Date/Time Source Procedure Growth Status 07/28/24 04:08 Blood Blood Culture - Preliminary NO GROWTH AFTER 24 HOURS OF INCUBATION. Resulted Labs and/or images reviewed: Labs reviewed by me, Image(s) reviewed by me Assessment/Plan Assessment/Plan Acute chest pain rule out coronary artery disease, cardiology consult appreciated Hypercholesterolemia Fever secondary to possible aspiration pneumonia: Doxycycline History of sleep apnea on CPAP PTSD : Continue home medications Seroquel and Klonopin History of alcohol abuse Elevated liver enzymes possibly secondary to alcohol abuse: Counseling PE ruled out Chest x-ray negative Gunjan test negative Rapid flu test negative Urine drug screen negative Possible esophagitis by CT chest: Consult for GI Dr. Roman, appreciated, placed on pantoprazole and Carafate Time spent 45 minutes Patient is full code Advanced care planning time 20 minutes Plan discussed with: Patient My Orders Orders - ESTEBAN BOONE MD Procedure Category Date Status Time Doxycycline PHA 07/28/24 In Process 100mg/100ml 15:15 *[facility] CONS 07/28/24 Transmitted 15:16 Date of Service: Jul 29, 2024 Billing Provider: ESTEBAN BOONE MD Common Visit Codes: [id number] INP/OBS CARE(HIGH) ESTEBAN BOONE MD Jul 29, 2024 10:26
[2024-07-29] MEDS: SUCRALFATE 1 GM/10 ML ORAL SUSP PO SCH (12:15)
--- NOTE | 2024-07-29 14:41 | DVH ---
CT NECK WITHOUT CONTRAST Clinical History: SORE THROAT WITH FEVER Comparison: None Technique: Multiple contiguous CT images of the neck were obtained without intravenous contrast. The se images were reformatted degenerate coronal and sagittal reconstructions. Radiation Dose Information: CT Dose: CTDI volume is 14.29 mGy. Dose-length product is 457.7 mGy*cm Findings: Evaluation of the soft tissues of the neck is limited without intravenous contrast. There is no evidence of a soft tissue neck mass or pathologically enlarged cervical lymph nodes. The re are scattered subcentimeter lymph nodes which are not pathologic by size criteria. The salivary an d thyroid glands appear within normal limits. The aerodigestive tract grossly appears unremarkable. There is no gross evidence of a mucosal or subm ucosal pharyngeal lesion. The visualized intracranial and intraorbital contents appear within normal limits. The lung apices a re clear. The visualized paranasal sinuses and mastoid air cells are also clear. The osseous structures appear within normal limits. Impression: 1. Unremarkable noncontrast CT neck. HS:Y
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
--- NOTE | 2024-07-29 17:42 | DVH ---
ULTRASOUND ABDOMEN LIMITED INDICATION: Elevated liver enzymes TECHNIQUE: Multiple real-time sonographic images of the abdomen were obtained. COMPARISON: None FINDINGS: The visualized liver parenchyma appears homogenous . The liver measures 16.7 cm. No discrete he patic lesion or intrahepatic biliary ductal dilatation is identified. The gallbladder is mildly contracted. There is no evidence of gallstones, gallbladder wall thickening or pericholecystic fluid. The common biliary duct is not dilated. The right kidney measures 10.5 cm length. No sonographic evidence of nephrolithiasis or hydronephro sis. Visualized portions of the pancreas appears within normal limits. IMPRESSION: 1. Mildly contracted gallbladder without evidence of gallstones. HS:Y
[2024-07-30 01:27] VITALS: BP 101/60; PULSE 80; RESP 18; TEMP 100.2; O2SAT 98
[2024-07-30 05:27] VITALS: BP 106/55; PULSE 85; RESP 17; TEMP 97.2; O2SAT 96
[2024-07-30 06:38] LABS: INR 1.08 (0.9-1.15); Partial Thromboplastin Time 31.9 SEC (24.5-34.5); Prothrombin Time 11.4 sec (9.3-11.8)
[2024-07-30 07:58] VITALS: BP 96/54; PULSE 106; RESP 18; TEMP 99.3; O2SAT 93
[2024-07-30 08:30] VITALS: PULSE 84
[2024-07-30] MEDS ORDERED: MIDAZOLAM HCL 2MG/2ML 2ml VIAL (1mg/ml) ONE (09:42)
[2024-07-30] MEDS ORDERED: fentaNYL CITRATE 100 MCG/2 ML VL ONE (09:42)
[2024-07-30] MEDS ORDERED: GLYCOPYRROLATE 0.2 MG/ML 1ML VIAL ONE (09:43)
[2024-07-30] MEDS ORDERED: PROPOFOL 10 MG/ML 20 ML IV ONE (09:43)
[2024-07-30] MEDS ORDERED: LIDOCAINE 2% (LOCAL ANESTH.) PF 5ml SDV ONE (09:43)
[2024-07-30] MEDS ORDERED: ONDANSETRON HCL 4 MG/2 ML VIAL ONE (09:43)
[2024-07-30] MEDS ORDERED: HYDROmorphone HCL 2 MG/ML VL/or syr IV PRN (09:45)
[2024-07-30] MEDS ORDERED: KETAMINE 50mg/ML 1ml syringe ONE (09:59)
--- NOTE | 2024-07-30 10:11 | DVHOP2 ---
Operative Report DATE OF OPERATION: 07/30/24 PROCEDURE: Upper Endoscopy with biopsy. PREOPERATIVE INDICATION: The patient is a 39 -year-old male undergoing endoscopy for abnormal finding GI tract imaging suspected esophagitis and a sore throat POSTOPERATIVE DIAGNOSES: 1. 2 cm sliding-type hiatal hernia with irregular squamocolumnar junction and grade B linear erosive esophagitis with some esophageal ulcers extending into the distal 2-3 cm of the esophagus from which biopsies were obtained 2. Mild antral gastritis with some hyperemia erythema otherwise normal examination of the 2nd and 3rd part of the duodenum, posterior pharynx appeared normal PROCEDURE PERFORMED BY: Jose Alejandro Roman GI NURSE: Kirstin SCOPE: Olympus videoendoscope. ASA CLASS: 2. PREOPERATIVE MEDICATIONS: Mac annalise, Dr. Portillo PROCEDURE IN DETAIL: After obtaining an informed consent, the patient was placed on left lateral decubitus position. The patient was then sedated with the above medications. A bite block was placed between his teeth. The endoscope was then passed through the oropharynx, into the esophagus, and through the stomach and pylorus up to the second and third part of the duodenum. The endoscope was then withdrawn. The 2nd and 3rd part of the duodenum and the duodenal bulb were normal. There was good bile drainage. Duodenal biopsies were obtained. The pre-pyloric area and antrum showed mild antral gastritis. There was hyperemia erythema. Gastric biopsies were obtained. On retroflexion the fundus cardia and angularis were normal. The endoscope was then withdrawn into the distal esophagus. Patient had a 2 cm sliding-type hiatal hernia irregular squamocolumnar junction grade B linear erosive esophagitis with ulcers extending into the distal 2-3 cm of the esophagus Distal esophageal biopsies were obtained. The remaining distal and proximal esophagus and oropharynx were unremarkable The patient tolerated the procedure well without difficulty. COMPLICATIONS : None SPECIMENS: Duodenal biopsies Gastric biopsies Esophageal biopsies DISPOSITION: Transfer back to the floor Stable PLAN: 1. Await for biopsy result 2. Will place pt on Protonix 40 mg bid 3. Carafate 1 g p.o. twice a day 4. DC aspirin NSAIDs smoking alcohol 5. Resume soft mechanical diet advance as tolerated 6. Patient is stable for discharge from GI point of view and he can follow up in my office in 4-6 weeks JOSE ALEJANDRO ROMAN MD Jul 30, 2024 10:10
[2024-07-30 10:12] VITALS: O2SAT 100
--- NOTE | 2024-07-30 10:27 | DVHPN2 ---
Reviewed: Care Plan, H&P, Labs, Medications, Previous Orders, Radiology Changes from previous H/P or p: No Changes Eyes: No Pain, No Vision change, No Conjunctivae inflammation, No Eyelid inflammation, No Other, No Redness ENT: No Ear pain, No Ear discharge, No Nose pain, No Nose discharge, No Nose congestion, No Mouth pain, No Mouth swelling, No Throat pain, No Throat swelling, No Other Cardiovascular: Chest Pain; No Palpitations, No Orthopnea, No Paroxysmal Noc. Dyspnea, No Edema, No Lt Headedness, No Other Respiratory: No Cough, No Dry, No Shortness of breath; SOB with excertion; No Wheezing, No Hemoptysis, No Pleuritic Pain, No Sputum, No Other Gastrointestinal: No Nausea, No Vomiting, No Abdominal Pain, No Diarrhea, No Constipation, No Melena, No Hematochezia, No Other Genitourinary: No Dysuria, No Frequency, No Incontinence, No Hematuria, No Retention, No Other Musculoskeletal: No other, No neck pain, No shoulder pain, No arm pain, No back pain, No hand pain, No leg pain, No foot pain Skin: No Rash, No Lesions, No Jaundice, No Bruising, No Other Objective Vitals Vital Signs Date Time Temp Pulse Resp B/P (MAP) Pulse Ox O2 Delivery O2 Flow Rate FiO2 07/30/24 07:58 99.3 106 18 96/54 (68) 93 99.3 07/29/24 20:00 Room Air* 0 21 Intake/Output Intake and Output 07/30/24 07:00 Intake Total 1550 ml Balance 1550 ml Intake Oral 1450 ml IV Total 100 ml # Voids 11 # Bowel Movements 3 Medications Current Medications Medications Dose Ordered Sig/Caroline Route Start Time Stop Time Status Last Admin Dose Admin Sodium Chloride 10 ml Q8HR IV 07/28/24 14:00 07/30/24 06:04 10 ML Acetaminophen/ Hydrocodone Bitart 1 tab Q4HP PRN PO 07/28/24 07:30 07/29/24 17:41 1 TAB Ondansetron HCl 4 mg Q4HP PRN IV 07/28/24 07:30 Docusate Sodium 100 mg BIDPRN PRN PO 07/28/24 07:30 Acetaminophen 650 mg Q6HP PRN PO 07/28/24 07:30 07/29/24 08:21 650 MG Nitroglycerin 0.4 mg Q5MINP PRN SL 07/28/24 07:30 Morphine Sulfate 2 mg Q30M PRN IV 07/28/24 07:30 Atorvastatin Calcium 10 mg HS PO 07/28/24 22:00 07/29/24 22:39 10 MG Clonazepam 1 mg HS PO 07/28/24 22:00 07/29/24 22:39 1 MG Aspirin 81 mg DAILY PO 07/28/24 10:00 07/29/24 09:24 81 MG Quetiapine Fumarate 25 mg HS PO 07/28/24 22:00 07/29/24 22:40 25 MG Doxycycline Hyclate 100 ml @ 50 mls/hr Q12H IV 07/28/24 15:15 07/30/24 03:53 50 MLS/HR Throat Lozenges 1 bar Q2HP PRN MT 07/29/24 09:30 07/29/24 12:16 1 BAR Pantoprazole Sodium 40 mg BID PO 07/29/24 10:00 07/29/24 22:39 40 MG Sucralfate 1 gm QID@0600,1130,1700,2200 PO 07/29/24 11:30 07/29/24 22:38 1 GM Hydromorphone HCl 0.25 mg Q10M PRN IV 07/30/24 09:45 07/30/24 10:16 UNV Laboratory Results Laboratory Tests 07/29/24 04:50 Coagulation Test 07/30/24 06:02 Prothrombin Time 11.4 sec (9.3-11.8) Prothrombin Time INR 1.08 (0.9-1.15) Activated Partial Thromboplast Time 31.9 SEC (24.5-34.5) Urinalysis Test 07/28/24 03:41 Urine Color Yellow (Yellow) Urine Clarity Clear (Clear) Urine pH 6.5 (5.0-9.0) Urine Specific [place] 1.031 (1.001-1.035) Urine Protein 1+ (Negative) H Urine Ketones Negative (Negative) Urine Blood Negative /uL (Negative) Urine Nitrite Negative (Negative) Urine Bilirubin Negative (Negative) Urine Urobilinogen 2 mg/dL (Negative) H Urine Leukocyte Esterase Negative /uL (Negative) Urine RBC 2 /hpf (0 - 3) Urine Microscopic WBC 2 /HPF (0-3) Urine Squamous Epithelial Cells None seen /hpf (<5) Urine Bacteria None seen /hpf (None Seen) Urine Mucus Few (None Seen) Urine Glucose Normal mg/dL (Normal) Microbiology Microbiology Date/Time Source Procedure Growth Status 07/28/24 04:08 Blood Blood Culture - Preliminary NO GROWTH AFTER 48 HOURS OF INCUBATION. Resulted 07/28/24 03:41 Voided Urine Urine Culture - Preliminary Resulted Labs and/or images reviewed: Labs reviewed by me, Image(s) reviewed by me Assessment/Plan Assessment/Plan Noncardiac chest pain cardiology consult appreciated Hypercholesterolemia Fever secondary to possible aspiration pneumonia: Doxycycline History of sleep apnea on CPAP PTSD : Continue home medications Seroquel and Klonopin History of alcohol abuse Elevated liver enzymes possibly secondary to alcohol abuse: Counseling PE ruled out Chest x-ray negative Gunjan test negative Rapid flu test negative Urine drug screen negative Gastritis by EGD by Dr. Jacey Roman who advised to discharge the patient on pantoprazole today itself Time spent 45 minutes Patient is full code Advanced care planning time 20 minutes Plan discussed with: Patient Date of Service: Jul 30, 2024 Billing Provider: ESTEBAN BOONE MD Common Visit Codes: [id number] INP/OBS CARE(HIGH) ESTEBAN BOONE MD Jul 30, 2024 10:27
[2024-07-30] MEDS ORDERED: PANT40T PO (10:30)
[2024-07-30] MEDS ORDERED: DOXY100C79 PO (10:30)
--- NOTE | 2024-07-30 10:37 | DVHDS2 ---
Discharge Summary Date of Admission Jul 28, 2024 at 07:26 Date of Discharge: Jul 30, 2024 Admitting Diagnosis Chest pain epigastric pain Wounds: EGD Labs/Diagnostic Data: Laboratory Results Test 07/30/24 06:02 07/29/24 04:50 07/28/24 14:41 07/28/24 04:08 Prothrombin Time 11.4 sec (9.3-11.8) Prothrombin Time INR 1.08 (0.9-1.15) Activated Partial Thromboplast Time 31.9 SEC (24.5-34.5) White Blood Count 5.3 10^3/uL (4.4-10.8) Red Blood Count 3.90 10^6/uL (4.5-5.90) Hemoglobin 12.8 g/dL (13.5-17.5) Hematocrit 36.3 % (41.0-53.0) Mean Corpuscular Volume 93.0 fL (80.0-100.0) Mean Corpuscular Hemoglobin 32.9 pg (28.0-32.0) Mean Corpuscular Hemoglobin Concent 35.4 g/dL (32.0-36.0) Red Cell Distribution Width 15.6 % (11.8-14.3) Platelet Count 228 10^3/uL (140-450) Mean Platelet Volume 7.0 fL (6.9-10.8) Neutrophils (%) (Auto) % (37.0-80.0) Lymphocytes (%) (Auto) % (10.0-50.0) Monocytes (%) (Auto) % (0.0-12.0) Basophils (%) (Auto) % (0.0-2.0) Neutrophils # (Auto) 10 ^3/uL (1.6-8.6) Lymphocytes # (Auto) 10 ^3/uL (0.4-5.4) Monocytes # (Auto) 10 ^3/uL (0-1.3) Differential Total Cells Counted 100.0 (100) Neutrophils % (Manual) 28 (37.0-80.0) Band Neutrophils % (Manual) 4 Lymphocytes % (Manual) 57 (10.0-50.0) Monocytes % (Manual) 4 (0-12) Eosinophils % (Manual) 5 (0-7) Basophils % (Manual) 0 (0.0-2.0) Metamyelocytes % (manual) 0 Myelocytes % (Manual) 0 Promyelocytes % (Manual) 0 Blast Cells % (Manual) 0 Reactive Lymphocytes 2 Platelet Estimate Adequate Sodium Level 139 mmol/L (136-145) Potassium Level 3.8 mmol/L (3.5-5.1) Chloride Level 107 mmol/L (98-107) Carbon Dioxide Level 24 mmol/L (20-31) Anion Gap 8 (5-15) Blood Urea Nitrogen 10 mg/dL (9-23) Creatinine 0.87 mg/dL (0.700-1.30) Glomerular Filtration Rate Calc 114 mL/min (>90) BUN/Creatinine Ratio 11.5 (10.0-20.0) Serum Glucose 121 mg/dL (74-106) Calcium Level 9.1 mg/dL (8.7-10.4) Total Bilirubin 0.7 mg/dL (0.2-1.0) Aspartate Amino Transferase (AST) 115 U/L (13-40) Alanine Aminotransferase (ALT) 195 U/L (7-40) Alkaline Phosphatase 115 U/L (46-116) Total Protein 5.7 g/dL (5.7-8.2) Albumin 3.6 g/dL (3.2-4.8) Erythrocyte Sedimentation Rate 16 mm/hr (0-20) Lactic Acid Level 1.5 mmol/L (0.4-2.0) Troponin I High Sensitivity 4 ng/L (</=54) Test 07/28/24 03:41 07/28/24 03:30 Urine Color Yellow (Yellow) Urine Clarity Clear (Clear) Urine pH 6.5 (5.0-9.0) Urine Specific [place] 1.031 (1.001-1.035) Urine Protein 1+ (Negative) Urine Ketones Negative (Negative) Urine Blood Negative /uL (Negative) Urine Nitrite Negative (Negative) Urine Bilirubin Negative (Negative) Urine Urobilinogen 2 mg/dL (Negative) Urine Leukocyte Esterase Negative /uL (Negative) Urine RBC 2 /hpf (0 - 3) Urine Microscopic WBC 2 /HPF (0-3) Urine Squamous Epithelial Cells None seen /hpf (<5) Urine Bacteria None seen /hpf (None Seen) Urine Mucus Few (None Seen) Urine Glucose Normal mg/dL (Normal) Urine Opiates Screen Neg (NEGATIVE) Urine Fentanyl Screen Neg (NEGATIVE) Urine Barbiturates Screen Neg (NEGATIVE) Urine Phencyclidine Screen Neg (NEGATIVE) Urine Amphetamines Screen Neg (NEGATIVE) Urine Benzodiazepines Screen Neg (NEGATIVE) Urine Cocaine Screen Neg (NEGATIVE) Urine Cannabinoids Screen Neg (NEGATIVE) Influenza Type A Antigen Negative (Negative) Influenza Type B Antigen Negative (Negative) SARS-CoV-2 Antigen (Rapid) Negative (NEGATIVE) D-Dimer, Quantitative 1.62 mg/L FEU (0.0-0.49) Hemoglobin A1c 4.8 % A1C (<5.7) Magnesium Level 1.9 mg/dL (1.6-2.6) Direct Bilirubin 0.3 mg/dL (<0.3) C-Reactive Protein High Sensitivity 0.65 mg/dL (<1.0) B-Type Natriuretic Peptide 4.65 pg/mL (0-100) Triglycerides Level 452 mg/dL (< 150) Cholesterol Level 122 mg/dL (< 200) LDL Cholesterol mg/dL (< 100) HDL Cholesterol 19 mg/dL (40-59) Thyroid Stimulating Hormone (TSH) 1.37 uIU/mL (0.55-4.78) Other Laboratory Tests 07/29/24 04:50 Brief Hx & Hospital Course: 69-year-old male came in complaining of chest pain and epigastric pain seen by the Cardiology. Troponin negative x3 advised noncardiac chest pain patient has had fever with the elevated white count possibly secondary to aspiration pneumonia started on doxycycline EGD by Dr. Jacey Roman revealed gastritis advised pantoprazole flu test negative Gunjan test negative urine drug screen was negative seen history of alcohol abuse with elevated liver enzymes advised to quit alcohol and also has a history of PTSD takes Seroquel and Klonolpin. GI Dr. Jacey Roman advised me to discharge the patient today itself as he as to watch his children at home . Consults/Reason for consult Cardiology GI Operations or Procedures EGD Condition at Discharge: Fair Final Diagnosis/Problems List Noncardiac chest pain cardiology consult appreciated Hypercholesterolemia Fever secondary to possible aspiration pneumonia: Doxycycline History of sleep apnea on CPAP PTSD : Continue home medications Seroquel and Klonopin History of alcohol abuse Elevated liver enzymes possibly secondary to alcohol abuse: Counseling PE ruled out Chest x-ray negative Gunjan test negative Rapid flu test negative Urine drug screen negative Gastritis by EGD by Dr. Jacey Roman who advised to discharge the patient on pantoprazole today itself Discharge Disposition: Home Discharge Instruct/Medications Diet: Regular Activity: Light activity Follow Up/Referral: Follow up with the primary Dr in one week Follow up with GI Dr. Jacey Roman in two weeks for the biopsy result Medications: Pantoprazole Doxycycline Transmitted to the pharmacy 39 (Time taken for discharge summary 39 minutes) Discharge Statement: "Patient was advised to return to the ER or call 911 if any headaches, dizziness, shortness of breath, chest pain, abdominal pain, bleeding, fevers, or worsening of medical condition. Patient was counseled about treatment plan, medications, possible side effects, patientverbalized understanding. All questions were answered to the best of my ability. This discharge took greater then 30 minutes in planning, reviewing documentation, counseling the patient, and discussing with other team members." ASSESSMENT ASSESSMENT Hospital Course Improved Assessment Noncardiac chest pain cardiology consult appreciated Hypercholesterolemia Fever secondary to possible aspiration pneumonia: Doxycycline History of sleep apnea on CPAP PTSD : Continue home medications Seroquel and Klonopin History of alcohol abuse Elevated liver enzymes possibly secondary to alcohol abuse: Counseling PE ruled out Chest x-ray negative Gunjan test negative Rapid flu test negative Urine drug screen negative Gastritis by EGD by Dr. Jacey Roman who advised to discharge the patient on pantoprazole today itself Date of Service: Jul 30, 2024 Billing Provider: ESTEBAN BOONE MD Common Visit Codes: [id number] DISCH DAY >30min ESTEBAN BOONE MD Jul 30, 2024 10:37
[2024-07-30 12:14] VITALS: BP 103/58; PULSE 88; RESP 20; TEMP 98.1; O2SAT 96
[2024-08-02 08:49] LABS: Hepatitis B Core Total AB Negative (Negative)
[2024-08-03 08:13] LABS: Hepatitis A Total Antibody Negative (Negative); Hepatitis B Surface Antibody Positive (Negative); Hepatitis B Surface Antigen Negative (Negative); Hepatitis C Antibody Negative (Negative)
== END 2024-07-30 12:49 | disposition home or self-care (01) | DRG 178 ==
LOC: ER 03:16 → OVERFLOW 07:26 → TELE-EAST 07-29 03:29
PROVIDERS: ADMIT Nurse Practitioner Family; ATTEND Family Medicine
PROC: 0DB68ZX Excision of Stomach, Via Natural or Artificial Opening Endoscopic, Diagnostic (ICD-10-PCS; 2024-07-30)
PROC: 0DB58ZX Excision of Esophagus, Via Natural or Artificial Opening Endoscopic, Diagnostic (ICD-10-PCS; 2024-07-30)
PROC: 0DB98ZX Excision of Duodenum, Via Natural or Artificial Opening Endoscopic, Diagnostic (ICD-10-PCS; principal; 2024-07-30 09:55)
DX: J69.0 Pneumonitis due to inhalation of food and vomit (principal); K22.10 Ulcer of esophagus without bleeding; R16.2 Hepatomegaly with splenomegaly, not elsewhere classified; F43.10 Post-traumatic stress disorder, unspecified; G47.30 Sleep apnea, unspecified; E78.00 Pure hypercholesterolemia, unspecified; G47.00 Insomnia, unspecified; G89.29 Other chronic pain; M54.9 Dorsalgia, unspecified; K21.9 Gastro-esophageal reflux disease without esophagitis; Z20.822 Contact with and (suspected) exposure to COVID-19; R73.03 Prediabetes; F10.10 Alcohol abuse, uncomplicated; Y90.9 Presence of alcohol in blood, level not specified; K29.70 Gastritis, unspecified, without bleeding; K44.9 Diaphragmatic hernia without obstruction or gangrene; R74.8 Abnormal levels of other serum enzymes; R74.01 Elevation of levels of liver transaminase levels; I10 Essential (primary) hypertension; Z88.0 Allergy status to penicillin; Z88.2 Allergy status to sulfonamides; Z71.41 Alcohol abuse counseling and surveillance of alcoholic
CPT/HCPCS: 36415; 70490; 71045; 71275; 76705; 80048; 80053; 80061; 80076; 80307; 81001; 83036; 83605; 83735; 83880; 84443; 84484; 85007; 85027; 85379; 85610; 85652; 85730; 86141; 86704; 86706; 86708; 86803; 86850; 86900; 86901; 87040; 87086; 87340; 87426; 87804; 93005; 93306; 96360; G0378; J2003; J2250; J2405; J2704; J7060